=== PATIENT | male | born 1995 | race Caucasian/White ===

== ENCOUNTER 2016-11-19 23:56 | Emergency (ER) | payer OTHER ==
[2016-11-20 00:02] VITALS: RESP 18; TEMP 97.5
--- NOTE | 2016-11-20 01:11 | EDPHY ---
H & P Stated Complaint: R thumb injury d/t fall Time Seen by Provider: 11/20/16 00:29 HPI/ROS: HPI The patient who is right-hand dominant presents with a fall landing on his right thumb with immediate pain in obvious deformity afterwards. This happened about 20 minutes prior to his arrival in the ER. He is complaining of moderate pain which is achy in nature and does not radiate. He denies any numbness or tingling.. REVIEW OF SYSTEMS Constitutional: No fever, no chills. Musculoskeletal: No back pain. Skin: No rashes. Neurological: No headache. PMHx: Healthy, no diabetes, no hypertension Soc Hx: College student PHYSICAL General Appearance: Alert, no distress Eyes: Pupils equal and round no pallor or injection ENT, Mouth: Mucous membranes moist Neurological: A&O, moves all extremities Skin: Warm and dry, no rashes Extremities: Right thumb with obvious deformity at the MCP joint, brisk capillary refill, sensation intact to light touch Psychiatric: Patient is oriented X 3, there is no agitation Source: Patient Exam Limitations: No limitations - Personal History Current Tetanus/Diphtheria Vaccine: Unsure - Medical/Surgical History Hx Asthma: No Hx Chronic Respiratory Disease: No Hx Diabetes: No Hx Cardiac Disease: No Hx Renal Disease: No Hx Cirrhosis: No Hx Alcoholism: No Hx HIV/AIDS: No Hx Splenectomy or Spleen Trauma: No Other PMH: PSHx: tonsillectomy, wisdom tooth extraction. PMHx: denies - Social History Smoking Status: Never smoked Constitutional: Initial Vital Signs Temperature (C) 36.4 C 11/19/16 23:57 Heart Rate 73 11/19/16 23:57 Respiratory Rate 18 11/19/16 23:57 Blood Pressure 110/53 L 11/19/16 23:57 O2 Sat (%) 96 11/19/16 23:57 O2 Delivery Mode Room Air Allergies/Adverse Reactions: No Known Allergies Allergy (Unverified 12/05/12 19:33) Home Medications: Medication Instructions Recorded NK [No Known Home Meds] 11/19/16 Medical Decision Making - Diagnostics Imaging: Right thumb x-rays #1: Dislocation at the MCP joint of right thumb, interpreted by me, radiology interpretation is pending. Right thumb x-rays #2: Dislocation is reduced, there is a tiny avulsion fracture of the distal 1st metacarpal, interpreted by me, radiology interpretation is pending. Procedures: REDUCTION Procedure: Dislocation reduction. Indication: Dislocation The right 1st MCP joint was reduced in the usual fashion without complications. Post reduction the patient's neurovascular exam is normal. Post reduction x- ray demonstrates reduction of the joint to the anatomic position. The procedure was performed by myself. SPLINT Procedure: Splint placement. A ortho glass thumb spica splint was applied to the right thumb by the tech. After application of the splint I returned and re-examined the patient. The splint was adequately immobilizing the joint and distal to the splint the patient's circulation and sensation was intact. Differential Diagnosis: This is a healthy 21-year-old male who fell onto his right thumb. He is neurovascularly intact, however there is an obvious deformity to his thumb. X- rays were obtained which demonstrate dislocation of the MCP joint. This was reduced by me after digital block was performed. The patient was placed in a thumb spica splint. Repeat x-ray shows small avulsion fracture of the metacarpal. He will be given information for Hand follow-up. Differential diagnosis includes thumb dislocation, thumb fracture, thumb sprain. Departure - Departure Disposition: Home, Routine, Self-Care Clinical Impression: Dislocated thumb Qualifiers: Encounter type: initial encounter Laterality: right Qualifier Code: (S63.104A) Unspecified dislocation of right thumb, initial encounter Fracture of first metacarpal bone Qualifiers: Encounter type: initial encounter Fracture type: closed Laterality: right Condition: Good Instructions: Finger Dislocation (ED) Additional Instructions: Please use rest, ice, elevation as needed for pain. Please follow-up with the hand specialist. I have listed his number below. Return to the emergency room if your worse in any way. Referrals: Kirill Nation MD [Medical Doctor] - As per Instructions
[2016-11-20 02:14] VITALS: BP 118/58; PULSE 82; O2SAT 99
--- NOTE | 2016-11-20 08:57 | DX ---
Right Thumb - Three Views, 0033 Hours Indication: Pain. Deformity. Findings: The right thumb is dislocated at the metacarpophalangeal joint. The proximal phalanx is dis placed dorsally and ulnarly relative to the first metacarpal. A tiny 1 x 2 mm cortical chip fracture is distracted posteriorly off the first metacarpal head. Impression: 1. Dislocated right thumb at the MCP joint. 2. Tiny cortical chip fracture likely off first metacarpal head.
--- NOTE | 2016-11-20 09:00 | DX ---
Right Thumb - Three Views ,1:40 a.m. Indication: Post reduction. Comparison: Right thumb series from one hour prior. Findings: The thumb has been nicely reduced into anatomic alignment. A tiny 1 x 2 mm chip fracture is present along the radial aspect of the first metacarpal head. Additionally, a nondisplaced cortical fracture is present along the radial aspect of the distal fifth metacarpal head. Impression: 1. Good anatomic reduction. 2. Tiny cortical chip fracture is off distal first metacarpal.
== END 2016-11-20 02:14 | disposition home or self-care (01) ==
PROC: 0RSUXZZ Reposition Right Metacarpophalangeal Joint, External Approach (ICD-10-PCS; principal; 2016-11-19)
DX: S63.114A Dislocation of metacarpophalangeal joint of right thumb, initial encounter (principal); S62.201A Unspecified fracture of first metacarpal bone, right hand, initial encounter for closed fracture; W18.39XA Other fall on same level, initial encounter